=== PATIENT | female | born 1950 | race Caucasian/White ===

== ENCOUNTER 2017-05-27 17:14 | Emergency (ER) | payer OTHER, MEDICARE ==
[~2017-05-27] VITALS: Ht 162.6 cm; Wt 80.7 kg
[2017-05-27 18:17] LABS: HEMATOCRIT 33.7 % (36.0-46.0); MCH 32.1 PG (29.0-34.0); MCHC 32.6 G/DL (30.0-36.0); MCV 98.3 FL (83-99); MEAN PLAT.VOLUME 10.1 uM^3 (9.5-12.4); PLATELET COUNT 182 K/uL (156-360); RBC DIS.WIDTH-CV 13.4 % (11.8-14.6); RBC DIS.WIDTH-SD 47.8 % (39-53); RED BLOOD COUNT 3.43 M/uL (3.80-5.20); WHITE BLOOD COUNT 6.5 K/uL (4.1-10.2)
[2017-05-27 18:34] LABS: CHLORIDE 104 mEq/L (99-109); POTASSIUM 3.7 mEq/L (3.7-5.4); SODIUM 141 mEq/L (136-147)
[2017-05-27 18:35] LABS: GLUCOSE 94 mg/dL (70-99)
[2017-05-27 18:37] LABS: ANION GAP 12 MEQ/L (2-14)
[2017-05-27 18:40] LABS: UREA NITROGEN (BUN) 11 mg/dL (9-23)
[2017-05-27 18:43] LABS: GFR ESTIMATE (CALCULATED) > 59 mL/min/
[2017-05-27 18:58] LABS: ADD MIUA? YES; BILIRUBIN NEGATIVE; BLOOD NEGATIVE; COLOR YELLOW ((YELLOW)); GLUCOSE (STRIP) NEGATIVE; KETONES NEGATIVE; LEUKOCYTES NEGATIVE; NITRITE NEGATIVE; PROTEIN (STRIP) NEGATIVE; SPECIFIC GRAVITY 1.008 (1.000-1.030); UROBILINOGEN 0.2 MG/DL (0.2-1.0)
[2017-05-27 19:02] LABS: BACTERIA RARE /HPF; EPITHELIAL CELLS RARE /HPF; MUCUS NONE SEEN /LPF; RED BLOOD CELLS 0-5 /HPF (0-5); UCUL ADDED? NO; WHITE BLOOD CELLS 0-5 /HPF (0-5)
[2017-05-27 19:19] LABS: TROP-I INTERPRETATION NEGATIVE; TROPONIN-I < 0.01 ng/mL (0.0-0.30)
[2017-05-27] MEDS ORDERED: ATORVASTATIN CA20 MG PO (20:10)
[2017-05-27 20:11] VITALS: BP 137/79
== END 2017-05-27 20:12 | disposition home or self-care (01) ==
LOC: EME 17:14
PROVIDERS: Emergency Medicine
DX: R42 Dizziness and giddiness (principal); E78.5 Hyperlipidemia, unspecified; F17.200 Nicotine dependence, unspecified, uncomplicated
CPT/HCPCS: 80048; 81003; 84484; 85027; 93005; 99281; 99284; J7030